=== PATIENT | male | born 1965 | race Caucasian/White ===

== ENCOUNTER 2017-01-17 10:59 | Emergency (ER) | payer SELFPAY ==
[~2017-01-17] VITALS: Ht 180.3 cm; Wt 93.5 kg
[~2017-01-17 10:59] MED LIST: IBUP800T23 PO; MEDR4PAK PO; ROBA500T PO
[2017-01-17 11:10] VITALS: BP 151/90; PULSE 75; RESP 16; TEMP 97.6; O2SAT 98
[2017-01-17 11:29] VITALS: BP 161/84; PULSE 69; RESP 18; O2SAT 97
[2017-01-17] MEDS ORDERED: KETOROLAC TROMETHAMINE 60 MG/2 ML (IM) VIAL IM ONE (12:30)
--- NOTE | 2017-01-17 12:33 | PD ---
HPI Chief Complaint: Headache Time Seen by Provider: 11:35 Travel History International Travel<30 days: No Contact w/Intl Traveler<30days: No Traveled to known affect area: No History of Present Illness HPI 51-year-old male with history of chronic back pain for last 7-8 years, here for evaluation of worsening low back pain, neck pain, and intermittent headaches. Patient reports having intermittent headaches, worse in the evening time for last 2 months. His back pain is moderate, described as sharp, is pretty diffuse. No paresthesias or motor deficits. No history of IVDU. No urinary or bowel incontinence or retention. No history of cancer. States that he has felt subjective fevers/chills. He tells me that he has an ongoing case for disability, and is requesting an MRI. He tells me that because of his case, he is not working, and cannot afford to see physicians as an outpatient. PFSH Past Medical History Diminished Hearing: No Musculoskeletal: Yes (CHRONIC BACK PAIN) Tetanus Vaccination: < 5 Years Influenza Vaccination: No Past Surgical History Appendectomy: Yes (AT 11 OR 12 YEARS OF AGE) Social History Alcohol Use: Yes (OCCASSIONAL) Tobacco Use: Yes (1 PPD) Substance Use: No Allergies-Medications (Allergen,Severity, Reaction): Coded Allergies: No Known Allergies (Verified , 01/17/17) Reported Meds & Prescriptions Reported Meds & Active Scripts Active Ibuprofen 800 Mg Tab 800 Mg PO Q6HR PRN Robaxin (Methocarbamol) 500 Mg Tab 500 Mg PO QID PRN Review of Systems Except as stated in HPI: all other systems reviewed are Neg Physical Exam Narrative GENERAL: Well-developed, well-nourished, comfortable, no acute distress. SKIN: Focused skin assessment warm/dry. No rash. HEAD: Atraumatic. Normocephalic. EYES: Pupils equal and round. No scleral icterus. No injection or drainage. ENT: Mucous membranes pink and moist. NECK: Trachea midline. No JVD. No nuchal rigidity. CARDIOVASCULAR: Regular rate and rhythm. Distal pulses brisk and equal bilaterally. RESPIRATORY: No accessory muscle use. Clear to auscultation. Breath sounds equal bilaterally. GASTROINTESTINAL: Abdomen soft, non-tender, nondistended. MUSCULOSKELETAL: No obvious deformities. No clubbing. No cyanosis. No edema. Mild midline vertebral tenderness without step-off throughout. Normal range of motion and muscle strength in all 4 extremities. NEUROLOGICAL: Awake and alert. No obvious cranial nerve deficits. Motor grossly within normal limits. Normal speech. Brisk patellar tendon reflexes bilaterally. No saddle anesthesia. Great toe extension present bilaterally. PSYCHIATRIC: Appropriate mood and affect; insight and judgment normal. Data Data Last Documented VS Vital Signs Date Time Temp Pulse Resp B/P Pulse Ox O2 Delivery O2 Flow Rate FiO2 01/17/17 14:24 48 16 124/78 95 Room Air 01/17/17 11:[address] Brain W/O Iv Contrast(Rout) (01/17/17 ) Ct Cerv Spine W/O Contrast (01/17/17 ) Ct Thor Spine W/O Contrast (01/17/17 ) Ct Lumb Spine W/O Contrast (01/17/17 ) Ketorolac Inj (Toradol Inj) (01/17/17 12:30) [facility] Medical Decision Making Medical Screen Exam Complete: Yes Emergency Medical Condition: Yes Differential Diagnosis Chronic back pain, degenerative disc disease, osteoarthritis, intracranial abnormality, meningitis/encephalitis/SAH unlikely. Narrative Course CT brain: CONCLUSION: No acute intracranial disease. CT cervical spine: CONCLUSION: 1. Mild degenerative changes without fracture. 2. Small protrusions at C5-6 and C6-[address] thoracic spine: CONCLUSION: 1. Scattered mild degenerative changes without fracture. 2. Scattered tiny/small central protrusions as described above. CT lumbar spine: 1 moderate broad-based protrusion more sagittal left that L4-5 with extruded component. 2 mild broad-based disc bulge at L5-S1 without canal stenosis. 3 small central protrusion at T12-L1 without canal stenosis. Patient was made aware of all findings. He has been standing at the exam room doorway waiting to be discharged for the last couple of hours. There are no red flags for low back pain. He ambulates with a walker. He does not want narcotic pain medications. Plan is to discharge him home with a Medrol Dosepak prescription and ibuprofen prescription. I will given the information to the [place] [facility] as well as the on-call neurosurgeon with whom to follow-up with this week. He was informed on when to return to the emergency department. He verbalizes understanding and agreement with plan. Diagnosis Primary Impression: Back pain Qualified Code: M54.9 - Chronic midline back pain, unspecified back location Additional Impressions: Cephalgia Qualified Code: R51 - Nonintractable episodic headache, unspecified headache type Lumbar herniated disc Referrals: Kirby Barbosa MD 3 days Neurosurgeon [facility] [address] 3 days Additional Instructions: Follow-up in the [place] [facility] this week. Follow-up with neurosurgeon Dr. Barbosa or a neurosurgeon of your choice this week. Return to the emergency department for worsening symptoms or any other concerns. Scripts Ibuprofen 800 Mg Kph310 Mg PO Q8H PRN (PAIN SCALE 5 TO 10) #30 TAB Ref 0 Prov:Len Driver MD 01/17/17 Methylprednisolone Dosepak (Medrol Dosepak)4 Mg Dspk4 Mg PO DIRECTED #1 DSPK Ref 0 Per Pharmacist direction Prov:Len Driver MD 01/17/17 Disposition: 01 DISCHARGE HOME Condition: Stable Len Driver MD January 17, 2017 12:33
--- NOTE | 2017-01-17 13:53 | RADHPO ---
EXAM DATE/TIME: 01/17/2017 13:12 [facility] COMPARISON: No previous studies available for comparison. INDICATIONS : Cephalgia; no injury. RADIATION DOSE: 58.53 CTDIvol (mGy) MEDICAL HISTORY : Chronic back pain. SURGICAL HISTORY : None. ENCOUNTER: Initial ACUITY: 1 day PAIN SCALE: 4/10 LOCATION: cranial TECHNIQUE: Multiple contiguous axial images were obtained of the head. Using automated exposure control and adj ustment of the mA and/or kV according to patient size, radiation dose was kept as low as reasonably a chievable to obtain optimal diagnostic quality images. FINDINGS: CEREBRUM: The ventricles are normal for age. No evidence of midline shift, mass lesion, hemorrhage or acute in farction. No extra-axial fluid collections are seen. POSTERIOR FOSSA: The cerebellum and brainstem are intact. The 4th ventricle is midline. The cerebellopontine angle i s unremarkable. EXTRACRANIAL: The visualized portion of the orbits is intact. SKULL: The calvaria is intact. No evidence of skull fracture. CONCLUSION: No acute intracranial disease. Jesu Sales MD on January 17, 2017 at 13:50 Board Certified Radiologist. This report was verified electronically.
--- NOTE | 2017-01-17 13:56 | RADHPO ---
EXAM DATE/TIME: 01/17/2017 13:12 [facility] COMPARISON: No previous studies available for comparison. INDICATIONS : Back pain. RADIATION DOSE: 44.44 CTDIvol (mGy) MEDICAL HISTORY : Chronic back pain. SURGICAL HISTORY : None. ENCOUNTER: Initial ACUITY: 1 day PAIN SCALE: 5/10 LOCATION: Bilateral neck TECHNIQUE: Volumetric scanning of the cervical spine was performed. Multiplanar reconstructions in the sagittal, coronal and oblique axial planes were performed. Using automated exposure control and adjustment o f the mA and/or kV according to patient size, radiation dose was kept as low as reasonably achievable to obtain optimal diagnostic quality images. FINDINGS: VERTEBRAE: Normal vertebral body height. Multilevel degenerative changes. ALIGNMENT: No evidence of subluxation. C2-C3: The bony spinal canal is normal in size. No evidence of disc bulge or herniation. The neural forami na are bilaterally patent. C3-C4: The bony spinal canal is normal in size. No evidence of disc bulge or herniation. The neural forami na are bilaterally patent. C4-C5: The bony spinal canal is normal in size. No evidence of disc bulge or herniation. The neural forami na are bilaterally patent. C5-C6: Small shallow central protrusion without canal stenosis. The neural foramina are bilaterally patent. C6-C7: Small broad-based protrusion abuts the thecal sac without canal for the disc.. The neural foramina a re bilaterally patent. C7-T1: The bony spinal canal is normal in size. No evidence of disc bulge or herniation. The neural forami na are bilaterally patent. CONCLUSION: 1. Mild degenerative changes without fracture. 2. Small protrusions at C5-6 and C6-7 levels. Jesu Sales MD on January 17, 2017 at 13:51 Board Certified Radiologist. This report was verified electronically.
[2017-01-17 14:24] VITALS: BP 124/78; PULSE 48; RESP 16; O2SAT 95
--- NOTE | 2017-01-17 14:41 | RADHPO ---
EXAM DATE/TIME: 01/17/2017 13:12 [facility] COMPARISON: No previous studies available for comparison. INDICATIONS : Back pain. RADIATION DOSE: 44.14 CTDIvol (mGy) ; Combined studies MEDICAL HISTORY : Chronic back pain. SURGICAL HISTORY : None. ENCOUNTER: Initial ACUITY: 1 day PAIN SCALE: 5/10 LOCATION: Bilateral back TECHNIQUE: Volumetric scanning of the thoracic spine was performed. Multiplanar reconstructions in the sagittal , coronal and oblique axial planes were performed. Using automated exposure control and adjustment o f the mA and/or kV according to patient size, radiation dose was kept as low as reasonably achievable to obtain optimal diagnostic quality images. FINDINGS: The vertebral bodies of the thoracic spine are in normal alignment without evidence of subluxation. Vertebral body height is maintained. No fractures are seen. Scattered mild degenerative changes. Ost eopenia. T1-T2: Normal. T2-T3: The thecal sac has a normal diameter. No evidence of disc bulge or protrusion. T3-T4: The thecal sac has a normal diameter. No evidence of disc bulge or protrusion. T4-T5: The thecal sac has a normal diameter. No evidence of disc bulge or protrusion. T5-T6: Tiny central protrusion without canal stenosis. T6-T7: The thecal sac has a normal diameter. No evidence of disc bulge or protrusion. T7-T8: Small central protrusion without canal stenosis. T8-T9: The thecal sac has a normal diameter. No evidence of disc bulge or protrusion. T9-T10: The thecal sac has a normal diameter. No evidence of disc bulge or protrusion. T10-T11: The thecal sac has a normal diameter. No evidence of disc bulge or protrusion. T11-T12: The thecal sac has a normal diameter. No evidence of disc bulge or protrusion. T12-L1: Small central protrusion without canal stenosis. CONCLUSION: 1. Scattered mild degenerative changes without fracture. 2. Scattered tiny/small central protrusions as described above. Jesu Sales MD on January 17, 2017 at 14:36 Board Certified Radiologist. This report was verified electronically.
--- NOTE | 2017-01-17 15:54 | RADHPO ---
EXAM DATE/TIME: 01/17/2017 13:12 [facility] COMPARISON: No previous studies available for comparison. INDICATIONS : Back pain. RADIATION DOSE: 44.14 CTDIvol (mGy) Combined studies. MEDICAL HISTORY : Chronic back pain. SURGICAL HISTORY : None ENCOUNTER: Initial ACUITY: 1 Day. PAIN SCALE: 5/10 LOCATION: Bilateral lumbar. TECHNIQUE: Volumetric scanning of the lumbar spine was performed. Multiplanar reconstructions in the sagittal, coronal and oblique axial planes were performed. Using automated exposure control and adjustment of the mA and/or kV according to patient size, radiation dose was kept as low as reasonably achievable t o obtain optimal diagnostic quality images. FINDINGS: VERTEBRAE: Normal vertebral body height. ALIGNMENT: No evidence of subluxation. T12-L1: Small central protrusion abuts the ventral thecal sac without canal stenosis. The neural foramina ar e patent bilaterally. L1-L2: The thecal sac has a normal diameter. No evidence of disc bulge or protrusion. The neural foramina are patent bilaterally. L2-L3: The thecal sac has a normal diameter. No evidence of disc bulge or protrusion. The neural foramina are patent bilaterally. L3-L4: The thecal sac has a normal diameter. No evidence of disc bulge or protrusion. The neural foramina are patent bilaterally. L4-L5: Moderate broad-based protrusion more sagittal left abuts the ventral thecal sac. There is minimal acu te component extending inferiorly underneath the posterior longitudinal ligament. Mild narrowing of b oth neural foramen. No canal stenosis. L5-S1: Mild broad-based disc bulge abuts ventral thecal sac without canal stenosis. The neural foramina are patent bilaterally. CONCLUSION: 1. Moderate broad-based protrusion more sagittal left at L4-5 with extruded component. 2. Mild broad-based disc bulge L5-S1 without canal stenosis. 3. Small central protrusion at T12-L1 without canal stenosis. Jesu Sales MD on January 17, 2017 at 14:00 Board Certified Radiologist. This report was verified electronically.
[2017-01-17] MEDS ORDERED: MEDR4PAK PO (16:20)
[2017-01-17] MEDS ORDERED: IBUP800T23 PO (16:20)
[2017-01-17 16:37] VITALS: BP 126/75
== END 2017-01-17 16:38 | disposition home or self-care (01) ==
LOC: PHED 10:59
DX: M54.9 Dorsalgia, unspecified (principal); R51 Headache
CPT/HCPCS: 70450; 72125; 72128; 72131; 96372; 99284; J1885

== ENCOUNTER 2017-06-15 00:30 | Emergency (ER) | payer SELFPAY ==
[~2017-06-15] VITALS: Ht 180.3 cm; Wt 99.0 kg
[2017-06-15 00:38] VITALS: BP 141/81; PULSE 52; RESP 16; TEMP 97.7; O2SAT 96
[2017-06-15] MEDS ORDERED: CYCL1TAB29 PO (01:43)
[2017-06-15] MEDS ORDERED: IBUP-1129 PO (01:43)
--- NOTE | 2017-06-15 01:43 | PD ---
HPI Chief Complaint: Back/ Neck Pain or Injury Time Seen by Provider: 01:40 Travel History International Travel<30 days: No Contact w/Intl Traveler<30days: No Traveled to known affect area: No History of Present Illness HPI 52-year-old male patient with history of chronic back pains, herniated disc, seen in the ER in the past for similar symptoms, here because he states his symptoms are ongoing, he does not have a primary care doctor to prescribe him medications. He denies any new symptoms, fevers, incontinence, or other symptoms. He is mostly complaining of back pains with radiation down to the left buttocks area currently. He states that he has had sciatica in the past and the symptoms have not changed. Modifying Factors: None Associated Signs & Symptoms: Chronic back pain, request for scripts Risk Factors: History of chronic back pain, herniated disks, sciatica PFSH Past Medical History Arthritis: Yes (Back, neck, arms, hands) Diminished Hearing: No Musculoskeletal: Yes (CHRONIC BACK PAIN) Tetanus Vaccination: < 5 Years Past Surgical History Appendectomy: Yes (AT 11 OR 12 YEARS OF AGE) Social History Alcohol Use: Yes (OCCASSIONAL) Tobacco Use: Yes (1 PPD) Substance Use: No Allergies-Medications (Allergen,Severity, Reaction): Coded Allergies: No Known Allergies (Verified , 01/17/17) Reported Meds & Prescriptions Reported Meds & Active Scripts Active Flexeril (Cyclobenzaprine HCl) 10 Mg Tab 10 Mg PO TID Motrin Ib (Ibuprofen) 200 Mg Tablet 600 Mg PO QID PRN Ibuprofen 800 Mg Tab 800 Mg PO Q8H PRN Medrol Dosepak (Methylprednisolone) 4 Mg Dspk 4 Mg PO DIRECTED Per Pharmacist direction Ibuprofen 800 Mg Tab 800 Mg PO Q6HR PRN Robaxin (Methocarbamol) 500 Mg Tab 500 Mg PO QID PRN Review of Systems Except as stated in HPI: all other systems reviewed are Neg Physical Exam Narrative GENERAL: Well-developed middle age white male patient currently in mild distress. Awake and oriented 3. SKIN: Focused skin assessment warm/dry. HEAD: Atraumatic. Normocephalic. EYES: Pupils equal and round. No scleral icterus. No injection or drainage. ENT: No nasal bleeding or discharge. Mucous membranes pink and moist. NECK: Trachea midline. No JVD. CARDIOVASCULAR: Regular rate and rhythm. No murmur appreciated. RESPIRATORY: No accessory muscle use. Clear to auscultation. Breath sounds equal bilaterally. GASTROINTESTINAL: Abdomen soft, non-tender, nondistended. Hepatic and splenic margins not palpable. MUSCULOSKELETAL: No obvious deformities. No clubbing. No cyanosis. No edema. BACK: No CVA tenderness. No rash. No point tenderness on palpation of the spine. NEUROLOGICAL: Awake and alert. No obvious cranial nerve deficits. Motor grossly within normal limits. Normal speech. PSYCHIATRIC: Appropriate mood and affect; insight and judgment normal. Data Data Last Documented VS Vital Signs Date Time Temp Pulse Resp B/P (MAP) Pulse Ox O2 Delivery O2 Flow Rate FiO2 06/15/17 01:55 06/15/17 00:38 97.7 52 16 96 Orders Orders Ibuprofen (Motrin) (06/15/17 01:45) Cyclobenzaprine (Flexeril) (06/15/17 01:45) [facility] Medical Decision Making Medical Screen Exam Complete: Yes Emergency Medical Condition: Yes Medical Record Reviewed: Yes Differential Diagnosis Muscle spasms versus acute on chronic back pain versus sciatica Narrative Course patient specifically stated to me that none of that is new. He is simply here to get scripts because he is unable to see her primary care doctor, does not have money, is on medical assistance. At this point, my plan would be to give him further scripts for chronic back pain. I have also talked him about obtaining a primary care doctor through patient's assistance, and given him contact number for celiac help. Return for any worsening in symptoms, new symptoms, fevers, neurological symptoms, and as needed. The plan was discussed with him and he states understanding. Diagnosis Primary Impression: Acute exacerbation of chronic low back pain Referrals: [facility]Other Pt SpecificInfo: Prescription(s) given Scripts Cyclobenzaprine (Flexeril) 10 Mg Tab 10 MG PO TID for Muscle Spasm, #20 TAB 0 Refills Prov: Payton Hurt MD 06/15/17 Ibuprofen (Motrin Ib) 200 Mg Tablet 600 MG PO QID Y for PAIN SCALE 1 TO 10, #28 Prov: Payton Hurt MD 06/15/17 Disposition: 01 DISCHARGE HOME Condition: Stable Payton Hurt MD Jun 15, 2017 01:43
[2017-06-15] MEDS ORDERED: CYCLOBENZAPRINE HCL 10 MG TAB PO ONE (01:45)
[2017-06-15] MEDS: IBUPROFEN 800 MG TAB PO ONE ×2 (01:45→01:48)
== END 2017-06-15 02:00 | disposition home or self-care (01) ==
LOC: PHED 00:30
DX: M54.5 Low back pain (principal); G89.29 Other chronic pain; F17.200 Nicotine dependence, unspecified, uncomplicated
CPT/HCPCS: 99283